=== PATIENT | male | born 1975 | race African-American/Black ===

== ENCOUNTER 2018-10-22 16:00 | Emergency (ER) | payer OTHER ==
[2018-10-22] MEDS ORDERED: Ketorolac Tromethamine 60 MG/2 ML VIAL ONE (16:25)
[2018-10-22] MEDS ORDERED: HYDROcodone/Acetaminophen 5/325 mg Tablet ONE (19:49)
--- NOTE | 2018-10-22 20:14 | MRI ---
MRI OF THE LUMBAR SPINE 10/22/18 COMPARISON: None. HISTORY: Chronic back pain with difficulty urinating and left lower extremity radiculopathy. Multiplanar and m ultisequence MR imaging of the lumbar spine is provided without contrast. FINDINGS: The sagittal STIR imaging demonstrates no focal area of osseous marrow edema. There is no anterolisthesis or retrolisthesis evident within the lumbar spine. On the basis of five lumbar type vertebral bodies, the conus medullaris terminates at T12-L1. T12-L1: Intervertebral disc height and signal intensity is within normal limits with no significant c entral canal or neural foraminal stenosis. L1-2: Intervertebral disc height and signal intensity is within normal limits with no significant aaron tral canal or neural foraminal stenosis. L2-3: Intervertebral disc height and signal intensity is within normal limits with no significant aaron tral canal or neural foraminal stenosis. L3-4: Intervertebral disc height and signal intensity is within normal limits with no significant aaron tral canal or neural foraminal stenosis. L4-5: There is disc space narrowing and disc desiccation with disc bulge. Central annular tear noted. Small left paracentral disc protrusion. Mild left lateral recess stenosis. No significant neural for aminal stenosis. L5-S1: Intervertebral disc height and signal intensity within normal limits with no significant centr al canal or neural foraminal stenosis. Imaged retroperitoneal structures appear grossly unremarkable. IMPRESSION: Degenerative disc disease at the L4-5 level as detailed above. POS: [facility]
== END 2018-10-22 19:52 | disposition home or self-care (01) ==
LOC: SCSER 16:00
DX: M51.26 Other intervertebral disc displacement, lumbar region (principal); I10 Essential (primary) hypertension; Z79.899 Other long term (current) drug therapy
CPT/HCPCS: 72148; 96372; J1885

== ENCOUNTER 2019-07-24 14:41 | Emergency (ER) | payer OTHER ==
[2019-07-24 15:30] LABS: #Basophils 0.1 thou/uL (0.0-0.2); #Eosinphils 0.3 thou/uL (0.0-0.7); #Lymphocytes 2.4 thou/uL (1.20-3.40); #Monocytes 0.5 thou/uL (0.11-0.59); #Neutrophils 3.9 thou/uL (1.40-6.50); %Basophils 1.6 % (0.0-1.0); %Eosinophils 3.6 % (0.0-10.0); %Lymphocytes 33.6 % (21.0-51.0); %Monocytes 6.5 % (0.0-10.0); %Neutrophils 54.7 % (42.0-75.0); Hemoglobin 15.7 g/dL (14.0-18.0); Mean Corpuscular HGB CONC 33.6 g/dL (32.0-36.0); Mean Corpuscular Hemoglobin 28.3 pg (27.0-31.0); Mean Corpuscular Volume 84.3 fL (78.0-98.0); Platelet Count 266 thou/uL (130-400); Red Blood Cell (RBC) Count 5.55 mill/uL (4.70-6.10); White Blood Cell (WBC) Count 7.1 thou/uL (4.8-10.8)
[2019-07-24 15:45] LABS: ALT (SGPT) 38 U/L (8-55); AST (SGOT) 23 U/L (5-34); Albumin 4.2 g/dL (3.5-5.0); Alkaline Phosphatase 76 U/L (40-150); Anion Gap 12 mmol/L (10-20); BUN (Urea Nitrogen) 15 mg/dL (8.9-20.6); Calc. Creatinine Clearance 0 mL/min (70-130); Calcium 9.4 mg/dL (7.8-10.44); Carbon Dioxide 28 mmol/L (22-29); Chloride 106 mmol/L (98-107); Estimated GFR-MDRD 72; Glucose 94 mg/dL (70-105); Lipase 18 U/L (8-78); Magnesium 1.8 mg/dL (1.6-2.6); Potassium 3.9 mmol/L (3.5-5.1); Protein, Total 7.2 g/dL (6.0-8.3); Sodium 142 mmol/L (136-145)
--- NOTE | 2019-07-24 15:48 | RAD ---
TWO VIEW CHEST: 07/24/19 HISTORY: Chest pain. Lungs are clear. No infiltrate. Heart and mediastinum unremarkable. Osseous structures are unremarkab le. IMPRESSION: No acute abnormalities. POS: [facility]
[2019-07-24] MEDS ORDERED: Aspirin Chewable 81 MG TAB ONE (15:58)
[2019-07-24] MEDS ORDERED: Nitroglycerin 2% Ointment 1 INCH/1 GM Packet ONE (15:58)
[2019-07-24 18:45] LABS: Troponin I 0.015 ng/mL (< 0.028)
== END 2019-07-24 19:09 | disposition home or self-care (01) ==
LOC: SCSER 14:41
DX: R07.9 Chest pain, unspecified (principal); I10 Essential (primary) hypertension; Z79.899 Other long term (current) drug therapy
CPT/HCPCS: 36415; 71046; 80053; 83690; 83735; 84443; 84484; 85025; 85379; 93005; 94760

== ENCOUNTER 2019-10-29 15:09 | Outpatient (CLI) | payer OTHER ==
--- NOTE | 2019-10-29 15:36 | RAD ---
KUB INDICATION: Right upper quadrant and right mid abdominal pain COMPARISON: None FINDINGS: Bowel gas: Nonspecific but without overt appearance of obstruction. Lung bases: Clear. Additional findings: No suspicious calcification demonstrated. Osseous structures: No acute osseous abnormality is demonstrated. There is scattered degenerative and osteoarthritic change present. IMPRESSION: 1. No acute abnormality.
== END 2019-10-29 15:10 | disposition home or self-care (01) ==
LOC: SCSRAD 15:09
PROVIDERS: ATTEND Nurse Practitioner Family
DX: R10.9 Unspecified abdominal pain (principal)
CPT/HCPCS: 74018

== ENCOUNTER 2019-11-12 07:54 | Outpatient (CLI) | payer OTHER ==
[2019-11-12 11:05] LABS: #Basophils 0.1 thou/uL (0.0-0.2); #Eosinphils 0.1 thou/uL (0.0-0.7); #Lymphocytes 1.9 thou/uL (1.20-3.40); #Monocytes 0.5 thou/uL (0.11-0.59); #Neutrophils 3.9 thou/uL (1.40-6.50); %Basophils 1.4 % (0.0-1.0); %Eosinophils 2.2 % (0.0-10.0); %Lymphocytes 28.7 % (21.0-51.0); %Monocytes 7.4 % (0.0-10.0); %Neutrophils 60.3 % (42.0-75.0); Hemoglobin 16.3 g/dL (14.0-18.0); Mean Corpuscular HGB CONC 33.5 g/dL (32.0-36.0); Mean Corpuscular Hemoglobin 28.7 pg (27.0-31.0); Mean Corpuscular Volume 85.6 fL (78.0-98.0); Mean Platelet Volume 7.9 fL (7.4-10.4); Platelet Count 266 thou/uL (130-400); RBC Distribution Width 12.8 % (11.5-14.5); White Blood Cell (WBC) Count 6.5 thou/uL (4.8-10.8)
[2019-11-12 11:36] LABS: ALT (SGPT) 57 U/L (8-55); AST (SGOT) 27 U/L (5-34); Albumin 4.6 g/dL (3.5-5.0); Alkaline Phosphatase 90 U/L (40-110); Anion Gap 12 mmol/L (10-20); BUN (Urea Nitrogen) 13 mg/dL (8.9-20.6); Bilirubin, Total 1.8 mg/dL (0.2-1.2); Calc. Creatinine Clearance 0 mL/min (70-130); Calcium 9.3 mg/dL (7.8-10.44); Carbon Dioxide 26 mmol/L (22-29); Chloride 105 mmol/L (98-107); Estimated GFR-MDRD 79; Globulin 2.7 g/dL (2.4-3.5); Glucose 88 mg/dL (70-105); Potassium 4.1 mmol/L (3.5-5.1); Protein, Total 7.3 g/dL (6.0-8.3); Sodium 139 mmol/L (136-145)
--- NOTE | 2019-11-12 16:54 | EKG ---
Test Reason : Blood Pressure : / mmHG Vent. Rate : 062 BPM Atrial Rate : 062 BPM P-R Int : 158 ms QRS Dur : 098 ms QT Int : 444 ms P-R-T Axes : 048 065 002 degrees QTc Int : 450 ms Normal sinus rhythm Early repolarization variant When compared with ECG of 24-JUL-2019 16:04, (Unconfirmed) Nonspecific T wave abnormality no longer evident in Anterior leads Confirmed by DR. Lucrecia MACKAY ([id number]) on 11/12/2019 4:54:07 PM Referred By: SINDY Confirmed By:DR. Lucrecia MACKAY
== END 2019-11-12 07:55 | disposition home or self-care (01) ==
LOC: LABBT 07:54
PROVIDERS: ATTEND Internal Medicine Cardiovascular Disease
DX: Z01.818 Encounter for other preprocedural examination (principal); R94.39 Abnormal result of other cardiovascular function study
CPT/HCPCS: 80053; 85025; 93005; 93010

== ENCOUNTER 2019-11-20 10:05 | Day surgery (SDC) | payer OTHER ==
[2019-11-12 10:19] VITALS: BMI 35.6
[2019-11-20] MEDS ORDERED: Heparin (Artline) 1,000 ML ONE (13:54)
[2019-11-20] MEDS ORDERED: Heparin 10,000 UNITS/1 ML VIAL ONE (13:55)
[2019-11-20] MEDS ORDERED: Verapamil 5 MG/2 ML VIAL ONE (13:55)
[2019-11-20] MEDS ORDERED: Nitroglycerin 100MG/250ML BOT 250 ML ONE (13:55)
[2019-11-20] MEDS ORDERED: hydrALAZINE 20 MG/ML VIAL ONE (15:06)
[2019-11-20] MEDS ORDERED: Iopamidol 370 76% 100 ML VIAL ONE (15:14)
[2019-11-20] MEDS ORDERED: Acetaminophen 500 MG TAB ONE (16:52)
--- NOTE | 2019-11-21 01:34 | DIS ---
DATE OF ADMISSION: 11/20/2019 DATE OF DISCHARGE: 11/20/2019 Mr. Flores is a very pleasant 44-year-old gentleman who I saw in the office, who complains of chest discomfort. He has risk factors of coronary artery disease and in fact he has hypercholesterolemia and hypertension. He underwent stress test. He was found to have an abnormal stress test, was advised to undergo cardiac catheterization. He was taken to cardiac lab pack chemist, where he underwent the procedure today without difficulties or complications. ADMITTING DIAGNOSES: Include chest pain, abnormal stress test, hypertension, hypercholesterolemia. DISCHARGE DIAGNOSIS: Hypertension, hypercholesterolemia. No evidence of coronary artery disease. DISCHARGE MEDICATIONS: Same as his admission medications which include: 1. Losartan 100 mg once a day. 2. Oxybutynin chloride 5 mg as needed. 3. Atorvastatin 10 mg daily. 4. He will follow up with me in 1 month in the office. He will continue his routine follow up with primary care physician, Dr. Georges Tillman. PROCEDURE IN HOSPITAL: Included cardiac catheterization, left ventriculogram, and coronary arteriography. HOSPITAL COURSE: This is a very pleasant 44-year-old gentleman, who was seen in the office complaining of chest discomfort. He had risk factors for coronary artery disease. He does have family history of heart disease, as well as hypertension and hypercholesterolemia. EKG showed some abnormal T-waves in V3 and AVF. He presented to the emergency room with shortness of breath previously and had hypertension. He was given nitroglycerin and started to feel better. He underwent stress test. He was found to have abnormal stress test and was advised to undergo a cardiac catheterization, which was performed today. During the procedure, he had no complications or difficulties. The coronary arteries are normal and he has normal left ventricular systolic function. He has large coronary arteries and no evidence of stenosis. At this time, he will be discharged to home once he is stable. He was given 20 mg of IV hydralazine for systolic blood pressure, which was elevated at the beginning of the procedure but then stabilized without any further difficulties or medications necessary. I will see him back in the office in about a month. He will continue his routine follow up with Dr. Tillman. He underwent a radial artery approach and no complications were noted. Job ID: [id number]
== END 2019-11-20 18:00 | disposition home or self-care (01) ==
LOC: CCL 10:05
PROVIDERS: ATTEND Internal Medicine Cardiovascular Disease
PROC: B2111ZZ Fluoroscopy of Multiple Coronary Arteries using Low Osmolar Contrast (ICD-10-PCS; principal; 2019-11-20)
PROC: 4A023N7 Measurement of Cardiac Sampling and Pressure, Left Heart, Percutaneous Approach (ICD-10-PCS; principal; 2019-11-20)
DX: R07.89 Other chest pain (principal); E78.00 Pure hypercholesterolemia, unspecified; I10 Essential (primary) hypertension; Z79.899 Other long term (current) drug therapy; Z88.0 Allergy status to penicillin; Z88.5 Allergy status to narcotic agent
CPT/HCPCS: 93458; C1769; J0360; J1644; Q9967

== ENCOUNTER 2020-03-22 07:40 | Outpatient (CLI) | payer OTHER ==
--- NOTE | 2020-03-22 08:07 | ULT ---
Exam: Abdominal aortic ultrasound HISTORY: Screening study for aneurysm COMPARISON: none TECHNIQUE: Grayscale, color flow, Doppler imaging spectral waveform analysis performed of the abdomin al aorta FINDINGS: Proximal abdominal aorta measures 1.6 cm, mid abdominal aorta measures 1.7 cm, distal abdominal aorta measures 1.4 cm. Images of the aortic bifurcation and iliac arteries are not submitted IMPRESSION: No sonographic evidence of aneurysm
== END 2020-03-22 07:41 | disposition home or self-care (01) ==
LOC: BICULT 07:40
PROVIDERS: ATTEND Nurse Practitioner Family
DX: Z13.6 Encounter for screening for cardiovascular disorders (principal); I10 Essential (primary) hypertension; R19.8 Other specified symptoms and signs involving the digestive system and abdomen
CPT/HCPCS: 76706